=== PATIENT | male | born 1955 | race Asian ===

== ENCOUNTER 2023-05-07 13:53 | Emergency (ER) | payer OTHER ==
[~2023-05-07] VITALS: Ht 170.2 cm; Wt 74.8 kg
[2023-05-07 13:53] VITALS: BP_SYST 165; PULSE 142; RESP 20; TEMP 97.9; O2SAT 98
[2023-05-07] MEDS ORDERED: DILTIAZEM HCL 60 MG TABLET ONE (14:12)
[2023-05-07] MEDS: dilTIAZem HCL IVP 5 MG/ML VIAL IVP ONE (14:26)
[2023-05-07] MEDS: KETOROLAC TROMETHAMINE 15 MG VIAL IVP ONE (14:30)
[2023-05-07] MEDS: DILTIAZEM HCL 120 MG CAP.SR.24H PO ONE (14:30)
[2023-05-07 14:33] LABS: BASOPHILS % (AUTO) 0.6 % (0.0-2.0); EOSINOPHILS # (AUTO) 0.3 K/uL (0.0-0.4); EOSINOPHILS % (AUTO) 3.9 % (0.0-4.0); HEMATOCRIT 32.4 % (36-54); HEMOGLOBIN 10.9 g/dL (14.0-18.0); LYMPHOCYTES # (AUTO) 0.8 K/uL (1.0-5.5); LYMPHOCYTES % (AUTO) 9.2 % (20.5-51.5); MEAN CORPUSCULAR HEMOGLOBIN 31 pg (27-31); MEAN CORPUSCULAR HGB CONC 34 % (32-36); MEAN CORPUSCULAR VOLUME 91 fL (79.0-98.0); MONOCYTES # (AUTO) 0.6 K/uL (0.0-1.0); MONOCYTES % (AUTO) 6.7 % (1.7-9.3); NEUTROPHILS % (AUTO) 79.6 % (40.0-70.0); PLATELET COUNT (AUTO) 339 K/uL (130-430); RED BLOOD CELL COUNT(AUTO) 3.55 MIL/uL (4.2-6.2); RED CELL DISTRIBUTION WIDTH 15.2 % (9.0-15.0); WHITE BLOOD COUNT (AUTO) 8.8 K/uL (4.8-10.8)
[2023-05-07 14:38] LABS: ANION GAP 8 (5-15); CALCIUM 9.2 mg/dL (8.4-11.0); CARBON DIOXIDE 35 mmol/L (23-29); CHLORIDE 99 mmol/L (98-107); CREATININE 4.22 mg/dL (0.55-1.30); GFR AFRICAN AMERICAN 18 mL/min (>90); GLUCOSE 108 mg/dL (74-106); SODIUM SERUM 142 mmol/L (136-145); UREA NITROGEN, BLOOD 20 mg/dL (8-21)
[2023-05-07 14:41] LABS: GFR NON AFRICAN-AMERICAN 15 mL/min (>90)
[2023-05-07 18:46] VITALS: BP_SYST 158; PULSE 72; RESP 16; TEMP 98; O2SAT 94
== END 2023-05-07 18:46 | disposition home or self-care (01) ==
LOC: SED 13:53
DX: I48.91 Unspecified atrial fibrillation (principal); E11.22 Type 2 diabetes mellitus with diabetic chronic kidney disease; I12.9 Hypertensive chronic kidney disease with stage 1 through stage 4 chronic kidney disease, or unspecified chronic kidney disease; N18.9 Chronic kidney disease, unspecified; Z88.6 Allergy status to analgesic agent; Z79.899 Other long term (current) drug therapy
CPT/HCPCS: 99285; 96374; 71045; 96375; 80048; 83880; 85025; 84484; 36415; 93005; J1885; J3490